=== PATIENT | female | born 1960 | race Caucasian/White ===

== ENCOUNTER → 2016-03-20 | Outpatient (CLI) | payer MEDICARE, MEDICAID | LOC: RAD 10:18 | PROVIDERS: ATTEND Surgery | DX: E04.1 Nontoxic single thyroid nodule (principal) | CPT/HCPCS: 76536 ==

== ENCOUNTER 2016-05-20 11:13 | Emergency (ER) | payer MEDICARE, MEDICAID ==
[~2016-05-20] VITALS: Ht 165.1 cm; Wt 78.5 kg
[2016-05-20 11:13] VITALS: BP 142/85
[~2016-05-20 11:13] MED LIST: ADDR10T PO; ALB0.5V NEB; ARIP10TA16 PO; ARIP2TAB9 PO; ATOR10TA PO; BUDE10.2 IH; DEXL60CA5 PO; DEXT10TA24 PO; ESTR1TAB24 PO; ESZO3TAB11 PO; GABA100C PO; LEVO175T5 PO; LEVO88TA2 PO; METF500T4 PO; OMEP10CA4 PO; OMEP20CA12 PO; PARO10TA24 PO; PARO40TA3 PO; QTP25T PO; QUET300T3 PO; TRAZ100T92 PO; ZOLP5TAB PO
--- OUTSIDE RECORDS SUMMARY | 2016-05-20 11:17 | XMS REPORT | Continuity of Care Document ---
Author Author [facility] Address Unknown Phone Unavailable Care Team Providers Care Stock Broker Supervisor Name Role Phone Rick Mcdaniel MD PCP [phone] Advance Directives Directive Response Recorded Date/Time Advanced Directives No 01/21/16 10:34am Problems Active Problems Medical Problem Onset Date Status Abdominal pain ~07/05/2013 Acute Acute pain 08/01/2011 Acute Back pain Unknown Acute Chest pain 11/11/2012 Acute Chest pain Unknown Acute Colonoscopy 07/29/2012 Acute Cough ~11/30/2013 Acute Diarrhea Unknown Acute Epigastric pain ~07/05/2013 Acute Gastritis Unknown Acute Gastroenteritis Unknown Acute Hip pain Unknown Acute Hypothyroidism Unknown Acute Nausea and vomiting Unknown Acute Near syncope Unknown Acute Noncompliance w/medication treatment due to intermit use ofmedication Unknown Acute Transient ischemic attack Unknown Acute Upper respiratory infection Unknown Acute Medications Current Home Medications Medication Dose Units Route Directions Days/Qty Instructions Start Date Gabapentin 100 Mg 300 Mg ORAL Twice A Day 08/01/11 Atorvastatin 10 Mg 40 Mg ORAL Daily 1 08/01/11 Estradiol 1 Mg 1 Mg ORAL Daily 07/29/12 Albuterol 2.5 Mg/0.5 Ml 1 Unit Nebulizer As Needed 11/11/12 Budesonide/Formoterol Fumarate 10.2 Gm 10.2 Gm RESPIRATORY (INHALATION) Twice A Day as needed for Dyspnea 12/02/13 Trazodone Hcl 100 Mg 100 Mg ORAL Bedtime 05/13/14 Metformin Hcl (Glucophage) 500 Mg 500 Mg ORAL Twice A Day 05/13/14 Levothyroxine Sodium 175 Mcg 1 Tab ORAL Daily 28 01/21/16 Paroxetine Hcl 40 Mg 1.5 Tab ORAL Daily 42 01/21/16 Omeprazole 20 Mg 1 Cap ORAL Daily 28 01/21/16 Aripiprazole 10 Mg 1 Tab ORAL Daily 28 01/21/16 Amphet Asp/Amphet/D-Amphet 10 Mg 1 Tab ORAL Daily 60 01/21/16 Past Home Medications Medication Directions Ordered Status Quetiapine Fumarate 25 Mg Tablet, 25 Mg Oral Daily 08/01/11 Discontinued Paroxetine Hcl 10 Mg Tablet, 60 Mg Oral Daily 08/01/11 Discontinued Zolpidem Tartrate 5 Mg Tablet, 5 Mg Oral Bedtime 08/01/11 Discontinued Levothyroxine Sodium 88 Mcg Tablet, 150 Mcg Oral Daily 08/01/11 Discontinued Dextroamphetamine/Amphetamine 10 Mg Tab, 20 Mg Oral Daily 07/29/12 Discontinued Quetiapine Fumarate 300 Mg Tab.er.24h, 300 Mg Oral Bedtime 07/29/12 Discontinued Dexlansoprazole 60 Mg Cap.mp, 60 Mg Oral Daily 11/11/12 Discontinued Eszopiclone 3 Mg Tablet, 3 Mg Oral Bedtime 11/11/12 Discontinued Aripiprazole 2 Mg Tablet, 4 Mg Oral Daily 11/11/12 Discontinued Omeprazole 10 Mg Capsule., 10 Mg Oral Daily 05/13/14 Discontinued Social History Query Response Start Date Stop Date Smoking Status Current every day smoker Hospital Discharge Instructions No hospital discharge instructions. Plan of Care No plan of care. Functional Status No functional status results. Allergies, Adverse Reactions, Alerts Allergen Type Severity Reaction Status Last Updated hydrocodone bitartrate Allergy Intermediate Nausea/Vomiting Active meloxicam Allergy Intermediate Nausea/Vomiting Active 01/21/16 Immunizations No immunization records. Vital Signs No known vital signs results. Results No known relevant diagnostic tests, laboratory data and/or discharge summary. Procedures No known history of procedures.
[2016-05-20 12:26] LABS: MEAN CORPUSCULAR HEMOGLOBIN 30.1 PG (26.0-34.0); MEAN CORPUSCULAR HGB CONC 33.4 g/dL (31.0-37.0); MEAN CORPUSCULAR VOLUME 90 FL (80-100); MEAN PLATELET VOLUME 9.3 FL (6.0-9.5); PLATELET COUNT 272 10^3uL (150-450); WHITE BLOOD COUNT 11.97 10^3uL (4.0-11.0)
[2016-05-20 12:34] LABS: BAND NEUTROPHILS % 0 % (0-6); EOSINOPHILS % 2 % (0-4); LYMPHOCYTES # 1.9 #; MONOCYTES # 0.3 #; MONOCYTES % 3 % (3-11); RBC MORPH NORMAL (NORMAL); SEGMENTED NEUTROPHILS % 79 % (51-67); TOTAL CELLS COUNTED 100
[2016-05-20 12:45] LABS: ALBUMIN 3.9 g/dL (3.4-5.0); ANION GAP 17.7 MEQ/L (3-15); CALCULATED IONIZED CALCIUM 4.2 mg/dL (3.8-4.6); TOTAL PROTEIN 7.1 g/dL (6.4-8.5)
--- NOTE | 2016-05-20 12:59 | Diagnostic Imaging Report ---
INDICATION: Shortness of breath, cough COMPARISON: January 21, 2016 TECHNIQUE: Two radiographs of the chest dated May 20, 2016 FINDINGS: Postsurgical changes again noted within the cervicothoracic spine. Pacer device is again with a battery pack overlying the left chest. The cardiac silhouette is within normal limits. No significant pulmonary vascular congestion. Minimal interstitial densities within the left lung base. Otherwise, the lungs appear clear. No significant pleural effusion. No pneumothorax. Scattered osseous degenerative changes without acute osseous abnormality. Surgical clips within the upper abdomen. IMPRESSION: Minimal left basilar atelectasis or pneumonitis. Otherwise, similar examination including postsurgical changes as above. Dictated by: Dictated on workstation # [id number]
[2016-05-20] MEDS ORDERED: OXYC1TAB87 PO (14:18)
[2016-05-20] MEDS ORDERED: DOXY100C2 PO (14:18)
== END 2016-05-20 14:29 | disposition home or self-care (01) ==
LOC: ED 11:14
DX: J16.0 Chlamydial pneumonia (principal)
CPT/HCPCS: 36415; 71020; 80053; 85025; 87486; 87581; 87633; 87798; 93005; 93010; 99284

== ENCOUNTER 2016-05-27 09:39 | Emergency (ER) | payer MEDICARE, MEDICAID ==
[~2016-05-27] VITALS: Ht 162.6 cm; Wt 77.3 kg
[~2016-05-27 09:39] MED LIST changes: +DOXY100C2 PO; +OXYC1TAB87 PO
[2016-05-27 10:52] VITALS: BP 122/84
== END 2016-05-27 10:50 | disposition home or self-care (01) ==
LOC: ED 09:40
DX: K20.8 Other esophagitis (principal)
CPT/HCPCS: 99281; 99283